=== PATIENT | male | born 1990 ===

== ENCOUNTER 2018-05-15 19:08 | Emergency (ER) | payer MEDICAID ==
[2018-05-15 19:45] VITALS: RESP 18
[2018-05-15] MEDS ORDERED: Sodium Chloride 0.9% 1,000 ML IV STA (19:51)
--- NOTE | 2018-05-15 20:28 | ED PDOC ---
Arrival/HPI <Darrion Paulino - Last Filed: 05/15/18 22:04> - General Historian: Patient - History of Present Illness Narrative History of Present Illness (Text): 05/15/18 20:24 28-year-old male presents today with bilateral flank pain radiating to the started this morning associated with 2 episodes of nausea and vomiting. Patient states initially the pain radiated to the testicle but he denies any testicular pain at present time. He denies penile discharge. Denies dysuria urinary frequency or urgency. He denies dizziness or weakness. Patient states he has a history of kidney stones with similar symptoms in the past. Patient states he took Motrin earlier today for pain without relief. Patient denies chest pain or shortness of breath. He denies numbness weakness or tingling in the lower extremities. He denies bladder or bowel incontinence. Time/Duration: Other (started this morning) Symptom Onset: Sudden Symptom Course: Improving Quality: Stabbing, Gas Like Severity Level: Moderate <Heaven Panchal - Last Filed: 05/15/18 23:17> - General Chief Complaint: Male Genitourinary Time Seen by Provider: 05/15/18 19:16 Past Medical History - Provider Review Nursing Documentation Reviewed: Yes - Travel History Have you recently traveled outside [place] w/in the past 3 mons?: No - Cardiac Hx Cardiac Disorders: No - Pulmonary Hx Respiratory Disorders: No - Neurological Hx Neurological Disorder: No - HEENT Hx HEENT Disorder: No - Renal Hx Renal Disorder: No - Endocrine/Metabolic Hx Endocrine Disorders: No - Hematological/Oncological Hx Blood Disorders: No - Integumentary Hx Dermatological Disorder: No - Musculoskeletal/Rheumatological Hx Musculoskeletal Disorders: No - Gastrointestinal Hx Gastrointestinal Disorders: No - Genitourinary/Gynecological Hx Genitourinary Disorders: Yes Other/Comment: Kindey Stones. - Psychiatric Hx Psychophysiologic Disorder: No Hx Substance Use: No <Heaven Panchal - Last Filed: 05/15/18 23:17> Family/Social History - Physician Review Nursing Documentation Reviewed: Yes Family/Social History: Unknown Family HX Smoking Status: Light Smoker < 10 Cigarettes Daily Hx Alcohol Use: Yes Frequency of alcohol use: Socially Hx Substance Use: No <Heaven Panchal - Last Filed: 05/15/18 23:17> Allergies/Home Meds <Darrion Paulino - Last Filed: 05/15/18 22:04> <Heaven Panchal - Last Filed: 05/15/18 23:17> Allergies/Adverse Reactions: Allergies martin Allergy (Verified 05/15/18 19:40) ANAPHYLAXIS shellfish derived Allergy (Verified 05/15/18 19:40) ANAPHYLAXIS Review of Systems - Review of Systems Constitutional: absent: Fatigue, Fevers Respiratory: absent: SOB, Cough Cardiovascular: absent: Chest Pain, Palpitations Gastrointestinal: Abdominal Pain, Nausea, Vomiting. absent: Constipation, Diarrhea Genitourinary Male: absent: Dysuria, Frequency, Hematuria, Urinary Output Changes Musculoskeletal: Back Pain. absent: Arthralgias, Neck Pain Skin: absent: Rash, Pruritis Neurological: absent: Headache, Dizziness Psychiatric: absent: Anxiety, Depression <Heaven Panchal - Last Filed: 05/15/18 23:17> Physical Exam Vital Signs Temp Pulse Resp BP Pulse Ox 05/15/18 19:40 99.2 F 85 18 146/92 H 98 <Darrion Paulino - Last Filed: 05/15/18 22:04> Vital Signs Reviewed: Yes Vital Signs Temp Pulse Resp BP Pulse Ox 05/15/18 19:40 99.2 F 85 18 146/92 H 98 Temperature: Afebrile Blood Pressure: Hypertensive Pulse: Regular Respiratory Rate: Normal Appearance: Positive for: Well-Appearing, Non-Toxic, Comfortable Pain Distress: None Mental Status: Positive for: Alert and Oriented X 3 - Systems Exam Head: Present: Atraumatic Mouth: Present: Moist Mucous Membranes Neck: Present: Normal Range of Motion Respiratory/Chest: Present: Clear to Auscultation, Good Air Exchange. No: Respiratory Distress, Accessory Muscle Use Cardiovascular: Present: Regular Rate and Rhythm, Normal S1, S2. No: Murmurs Abdomen: Present: Tenderness (+ RUQ and LUQ tenderness), Normal Bowel Sounds. No: Distention, Rebound, Guarding Genitourinary Male: Present: Normal External Genitalia, Other (chaparoned by Keshav alanis EMT). No: Circumcised Penis, Penile Discharge, Testicle Tenderness, Penile Swelling, Erythema, Hernias, Testicle Swelling Upper Extremity: Present: Normal ROM Lower Extremity: Present: Normal ROM Neurological: Present: GCS=15, Speech Normal Skin: Present: Warm, Dry, Normal Color. No: Rashes Psychiatric: Present: Alert, Oriented x 3 <Azoia,Heaven T - Last Filed: 05/15/18 23:17> Medical Decision Making - Lab Interpretations Lab Results: 05/15/18 20:21 05/15/18 20:21 Lab Results 05/15/18 20:21: WBC 15.8 H, RBC 5.17, Hgb 16.4, Hct 45.6, MCV 88.2, MCH 31.7, MCHC 36.0, RDW 12.7, Plt Count 279, MPV 10.2, Gran % 71.9 H, Lymph % (Auto) 11.2 L, [place] % (Auto) 15.2 H, Eos % (Auto) 1.4 L, Baso % (Auto) 0.3, Gran # 11.39 H, Lymph # (Auto) 1.8, [place] # (Auto) 2.4 H, Eos # (Auto) 0.2, Baso # (Auto) 0.05 05/15/18 20:21: Sodium 140, Potassium 3.9, Chloride 106, Carbon Dioxide 25, Anion Gap 12, BUN 17, Creatinine 1.1, Est GFR ( Amer) > 60, Est GFR (Non- Af Amer) > 60, Random Glucose 126 H, Calcium 9.8, Total Bilirubin 0.7, AST 41, ALT 34, Alkaline Phosphatase 71, Total Protein 7.6, Albumin 4.7, Globulin 2.9, Albumin/Globulin Ratio 1.6, Lipase 61 05/15/18 20:21: Urine Color Yellow, Urine Appearance Clear, Urine pH 6.0, Ur Specific [place] 1.010, Urine Protein Negative, Urine Glucose (UA) Negative, Urine Ketones Negative, Urine Blood Negative, Urine Nitrate Negative, Urine Bilirubin Negative, Urine Urobilinogen 0.2, Ur Leukocyte Esterase Negative - RAD Interpretation Radiology Orders: 05/15/18 20:00 ABD & PELVIS W/O PO OR IV CONT [CT] Stat - Medication Orders Current Medication Orders: Discontinued Medications Sodium Chloride (Sodium Chloride 0.9%) 1,000 mls @ 999 mls/hr IV .Q1H1M STA Stop: 05/15/18 20:51 Last Admin: 05/15/18 20:14 Dose: 999 mls/hr eMAR Start Stop Document 05/15/18 20:14 AD (Rec: [facility]/15/18 20:15 [id number] Intravenous Solution Start Date 05/15/18 Start Time 20:15 Ketorolac Tromethamine (Toradol) 30 mg IVP STAT STA Stop: 05/15/18 19:52 Last Admin: 05/15/18 20:15 Dose: 30 mg MAR Pain Assessment Document 05/15/18 20:15 [facility] (Rec: [facility]/15/18 20:15 [id number] Pain Reassessment Is this a pain reassessment? No Presence of Pain Presence of Pain Yes Description Intensity of Pain at present 8 IVP Administration Document 05/15/18 20:15 AD (Rec: 05/15/18 20:15 [id number] Charges for Administration # of IVP Administrations 1 Ondansetron HCl (Zofran Inj) 4 mg IVP STAT STA Stop: 05/15/18 19:52 Last Admin: 05/15/18 20:15 Dose: 4 mg IVP Administration Document 05/15/18 20:15 AD (Rec: 05/15/18 20:15 [id number] Charges for Administration # of IVP Administrations 1 <Darrion Paulino - Last Filed: 05/15/18 22:04> ED Course and Treatment: 05/15/18 20:30 Patient is nontoxic well appearing with stable vital signs presenting with b/l flank pain and upper abdominal pain CBC wbc:15.8 CMP wnl Lipase wnl Urinalysis wnl CAT scan:Findings Lower thorax Unremarkable. Liver Unremarkable. No gross lesion or ductal dilatation. Gallbladder and bile ducts Contracted. Otherwise, appears grossly unremarkable. Pancreas Unremarkable. No gross lesion or ductal dilatation. Spleen Unremarkable. Adrenals Unremarkable. No mass. Kidneys and ureters No hydronephrosis. No solid mass. There is a punctate non-obstructing calculus noted in the lower pole of the left kidney. Vasculature Unremarkable. No aortic aneurysm. Bowel No obstruction. No gross mural thickening. There are fluid-filled thick-walled loops of small bowel present especially jejunum, consistent with enteritis. Infectious and inflammatory etiologies are considered. Consider consultation with GI service. Appendix Normal appendix. Peritoneum Unremarkable. No free fluid. No free air. Lymph nodes Unremarkable. No enlarged lymph nodes. Bladder Unremarkable. Reproductive Prostate gland is unremarkable. Bones No acute fracture. Other Findings Small hiatal hernia is seen. Impression Contracted gallbladder. Evidence of enteritis. Infectious and inflammatory etiologies are considered. Consider consultation with GI service. Left kidney punctate non-obstructing calculus. Patient reassessment: Patient feeling better denies any pain in the back or abdomen. Denies testicular pain. Patient states he is hungry. no vomiting in the emergency room. abdomen non tender. Discussed all results with patient in depth advised follow-up with primary care physician within the next 2 days. Advised me to return if symptoms worsen or persist or if new concerning symptoms develop. Patient verbalizes understanding of discharge instructions and need for immediate followup. All aspects of this case were discussed the attending of record. Impression: Abdominal pain, back pain Motrin every 6 hours as needed for pain increase fluids Follow up with primary care physician within the next 2 days Return immediately if symptoms worsen persist or if new symptoms develop: High fevers, increasing pain, vomiting, diarrhea or any other concerning symptoms develop - RAD Interpretation Radiology Orders: 05/15/18 20:00 ABD & PELVIS W/O PO OR IV CONT [CT] Stat - Medication Orders Current Medication Orders: Sodium Chloride (Sodium Chloride 0.9%) 1,000 mls @ 999 mls/hr IV .Q1H1M STA Stop: 05/15/18 20:51 Last Admin: 05/15/18 20:14 Dose: 999 mls/hr eMAR Start Stop Document 05/15/18 20:14 AD (Rec: 05/15/18 20:15 [facility] [id number]) Intravenous Solution Start Date 05/15/18 Start Time 20:15 Discontinued Medications Ketorolac Tromethamine (Toradol) 30 mg IVP STAT STA Stop: 05/15/18 19:52 Last Admin: 05/15/18 20:15 Dose: 30 mg MAR Pain Assessment Document 05/15/18 20:15 AD (Rec: 05/15/18 20:15 [facility] [id number]) Pain Reassessment Is this a pain reassessment? No Presence of Pain Presence of Pain Yes Description Intensity of Pain at present 8 IVP Administration Document 05/15/18 20:15 AD (Rec: 05/15/18 20:15 [facility] [id number]) Charges for Administration # of IVP Administrations 1 Ondansetron HCl (Zofran Inj) 4 mg IVP STAT STA Stop: 05/15/18 19:52 Last Admin: 05/15/18 20:15 Dose: 4 mg IVP Administration Document 05/15/18 20:15 AD (Rec: 05/15/18 20:15 [facility] [id number]) Charges for Administration # of IVP Administrations 1 <Heaven Panchal - Last Filed: 05/15/18 23:17> - PA / AUDITOR APPRAISER / Resident Statement MD/DO has reviewed & agrees with the documentation as recorded. <Darrion Paulino - Last Filed: 05/15/18 22:04> Disposition/Present on Arrival <Darrion Paulino - Last Filed: 05/15/18 22:04> - Present on Arrival Any Indicators Present on Arrival: No History of DVT/PE: No History of Uncontrolled Diabetes: No Urinary Catheter: No History of Decub. Ulcer: No History Surgical Site Infection Following: None - Disposition Have Diagnosis and Disposition been Completed?: Yes Disposition Time: 23:00 Patient Plan: Discharge <Heaven Panchal - Last Filed: 05/15/18 23:17> - Disposition Diagnosis: Abdominal pain, Back pain Disposition: HOME/ ROUTINE Condition: GOOD Discharge Instructions (ExitCare): Flank Pain (DC), Acute Abdomen (Belly Pain) Additional Instructions: Motrin every 6 hours as needed for pain increase fluids Follow up with primary care physician within the next 2 days Return immediately if symptoms worsen persist or if new symptoms develop: High fevers, increasing pain, vomiting, diarrhea or any other concerning symptoms develop Prescriptions: Ibuprofen [Motrin] 600 mg PO Q6H PRN #20 tab PRN Reason: pain/fever reduction Referrals: Chelsea Conley MD [Medical Doctor] - Follow up with primary [facility] [Outside] - Follow up with primary Mark Arias MD [Staff Provider] - Follow up with primary Forms: [employer] (Bulgarian), WORK NOTE
[2018-05-15 20:31] LABS: BASO # 0.05 K/mm3 (0.0-2.0); BASO % 0.3 % (0.0-3.0); EOS # 0.2 (0.0-0.7); EOS % 1.4 % (1.5-5.0); GRAN # 11.39 (1.4-6.5); GRAN % 71.9 % (50.0-68.0); HEMOGLOBIN 16.4 g/dL (14.0-18.0); LYMPH # 1.8 (1.2-3.4); LYMPH % 11.2 % (22.0-35.0); MEAN CELL VOLUME 88.2 fl (80.0-105.0); MEAN CORPUSCULAR HEMOGLOBIN 31.7 pg (25.0-35.0); MEAN PLATELET VOLUME 10.2 fl (7.0-11.0); MONO # 2.4 (0.1-0.6); MONO % 15.2 % (1.0-6.0); RBC 5.17 10^6/uL (3.5-6.1); RED CELL DISTRIBUTION WIDTH 12.7 % (11.5-14.5); URINE BILIRUBIN NEGATIVE (NEGATIVE); URINE BLOOD NEGATIVE (NEGATIVE); URINE GLUCOSE (UA) NEGATIVE (NEGATIVE); URINE LEUKOCYTE ESTERASE NEGATIVE Leu/uL (NEGATIVE); URINE PROTEIN NEGATIVE mg/dL (<30 mg/dL); URINE UROBILINOGEN 0.2 E.U./dL (<1 E.U./dL); WHITE BLOOD COUNT 15.8 10^3/uL (4.5-11.0)
[2018-05-15 20:32] LABS: URINE APPEARANCE CLEAR (CLEAR); URINE COLOR YELLOW (YELLOW)
[2018-05-15 20:43] LABS: ALB/GLOB RATIO 1.6 (1.1-1.8); ALBUMIN 4.7 g/dL (3.0-4.8); ALT/SGPT 34 U/L (7-56); AST/SGOT 41 U/L (17-59); BLOOD UREA NITROGEN 17 mg/dL (7-21); CALCIUM 9.8 mg/dL (8.4-10.5); GFR NON-AFRICAN AMERICAN > 60; LIPASE 61 U/L (23-300)
[2018-05-15 23:28] VITALS: BP 127/89; PULSE 87; TEMP 98.8; O2SAT 100
--- NOTE | 2018-05-16 09:32 | CT ---
Date of service: 05/15/2018 PROCEDURE: CT Abdomen and Pelvis without intravenous contrast HISTORY: b/l flank pain COMPARISON: None. TECHNIQUE: CT scan of the abdomen and pelvis was performed without administration of intravenous contrast. Oral contrast was not administered. Coronal and sagittal reformatted images were obtained. . Radiation dose: Total exam DLP = 820.47 mGy-cm. This CT exam was performed using one or more of the following dose reduction techniques: Automated exposure control, adjustment of the mA and/or kV according to patient size, and/or use of iterative reconstruction technique. FINDINGS: LOWER THORAX: The visualized lungs are clear. LIVER: Normal in size. No intrahepatic ductal dilatation. GALLBLADDER AND BILE DUCTS: No calcified gallstones. No biliary dilatation PANCREAS: Normal in size. No ductal dilatation. SPLEEN: Normal in size. ADRENALS: Normal in size. No discrete nodule. KIDNEYS AND URETERS: Normal in size. There are punctate nonobstructing stones in the lower pole of the left kidney. There is a 10 mm high attenuation exophytic lesion in the lower pole of the left kidney. No hydronephrosis. VASCULATURE: No aortic aneurysm. No aortic atherosclerotic calcification or mural plaque present. BOWEL: Evaluation of the bowel is limited in the absence of oral contrast. Allowing for this, there are fluid-filled mildly prominent bowel loops in the right abdomen. The colon is decompressed. No bowel dilatation or obstruction. APPENDIX: Normal appendix. PERITONEUM: No free fluid. No free air. LYMPH NODES: No enlarged lymph nodes. BLADDER: Well distended and grossly normal in appearance. REPRODUCTIVE: The uterus is normal in size BONES: No acute fracture. OTHER FINDINGS: None. IMPRESSION: 1. Punctate nonobstructing stones in the lower pole of the left kidney. No obstructive uropathy or hydronephrosis. 2. 10 mm exophytic lesion in the lower pole of the left kidney likely represents a hemorrhagic cyst however correlation with retroperitoneal ultrasound is recommended for definitive evaluation. 3. Fluid-filled mildly prominent small bowel loops in the right abdomen could represent nonspecific enteritis in the appropriate clinical setting. A preliminary report was provided by [facility]. A preliminary report was provided by [facility].
== END 2018-05-15 23:10 | disposition home or self-care (01) ==
LOC: ED 19:08
DX: R10.9 Unspecified abdominal pain (principal); M54.9 Dorsalgia, unspecified; Z87.442 Personal history of urinary calculi
CPT/HCPCS: 74176; 80053; 81003; 83690; 85025; 87040; 87086; 96374; 96375; 99284; J1885; J2405; J7030